=== PATIENT | female | born 1985 | race Caucasian/White ===

== ENCOUNTER 2017-11-01 21:39 | Emergency (ER) | payer OTHER ==
[~2017-11-01] VITALS: Ht 30.5 cm; Wt 63.5 kg
[2017-11-01] MEDS ORDERED: Tetanus/Diptheria/Pertussis Vaccine 0.5ml Syr IM ONE (21:45)
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
[2017-11-01 23:08] VITALS: BP 119/59
[2017-11-01] MEDS ORDERED: CEPHALEXIN500 MG ORAL (23:58)
[2017-11-02 00:15] VITALS: BP 127/83
== END 2017-11-02 00:15 | disposition home or self-care (01) ==
LOC: EDBD 21:39 → EMR 22:17
DX: F10.129 Alcohol abuse with intoxication, unspecified (principal); S61.212A Laceration without foreign body of right middle finger without damage to nail, initial encounter; W19.XXXA Unspecified fall, initial encounter; Y92.009 Unspecified place in unspecified non-institutional (private) residence as the place of occurrence of the external cause; Z23 Encounter for immunization; Z88.0 Allergy status to penicillin
CPT/HCPCS: 12001; 36415; 73130; 80307; 90471; 90715; 96372; 99283; G0480; 80329